=== PATIENT | female | born 1970 | race Caucasian/White ===

== ENCOUNTER → 2021-04-17 14:04 | Outpatient (CLI) | payer BC, MEDICARE, SELFPAY ==
--- NOTE | ~2021-04-17 | US_ITS ---
US soft tissue abdomen 04/17/2021 14:28 Indication: Ventral hernia Procedure: High-resolution ultrasound of the anterior abdominal wall soft tissues Comparison: No prior studies for comparison. Findings: There is normal heterogeneous echotexture without focal solid or cystic mass. No evidence f or hernia. Impression: 1: Normal ultrasound of the anterior abdominal wall soft tissues. No discrete hernia identified. Reviewed, dictated and finalized at location A. Impression: 1: Normal ultrasound of the anterior abdominal wall soft tissues. No discrete h ernia identified.
== END ==
PROVIDERS: PCP Emergency Medicine; Visit Provider Emergency Medicine
DX: K43.9 Ventral hernia without obstruction or gangrene (principal)
CPT/HCPCS: 76705

== ENCOUNTER → 2021-07-05 16:08 | Outpatient (CLI) | payer BC, SELFPAY ==
--- NOTE | ~2021-07-05 | MM_ITS ---
EXAMINATION: MM screening [facility] BI w ericka HISTORY: Screening TECHNIQUE: Craniocaudal and mediolateral oblique 3-D tomosynthesis images were obtained and synthetic 2-D images were generated. CAD analysis was submitted and interpreted. COMPARISON: No prior mammogram is available for comparison at this institution. BREAST PARENCHYMAL COMPOSITION: There are scattered areas of fibroglandular density. FINDINGS: There is a focal cluster of indeterminate calcifications in the lower outer quadrant of the left breast posteriorly. There are no suspicious masses, calcifications or architectural distortion in the right breast to suggest malignancy. IMPRESSION: 1. Clustered indeterminate left breast calcifications. 2. Magnification views are recommended. BI-RADS Category 0: Incomplete: Needs additional imaging evaluation. Reviewed, dictated and finalized at location A.
== END ==
PROVIDERS: PCP Emergency Medicine; Visit Provider Emergency Medicine
DX: Z12.31 Encounter for screening mammogram for malignant neoplasm of breast (principal); R92.8 Other abnormal and inconclusive findings on diagnostic imaging of breast
CPT/HCPCS: 77063; 77067

== ENCOUNTER → 2021-11-02 08:04 | Outpatient (CLI) | payer BC, SELFPAY ==
--- NOTE | ~2021-11-02 | MM_ITS ---
EXAMINATION: MM diagnostic priya LT w ericka HISTORY: Left breast calcifications on screening mammogram TECHNIQUE: Additional 3-D tomosynthesis images of the left breast were performed and synthetic 2-D im ages were generated. Magnification views are also obtained CAD analysis was submitted and interpreted . COMPARISON: 07/05/2021 FINDINGS: There are calcifications posterior third of the lower-outer breast at the 4:00 location 7 c m from the nipple which appear to be mildly pleomorphic in morphology. No associated mass or architec tural distortion are identified. IMPRESSION: 1. Indeterminate left breast calcifications. 2. Stereotactic biopsy is recommended. BI-RADS category 4, suspicious findings. Reviewed, dictated and finalized at location A. LCANIZER HEAD
== END ==
PROVIDERS: PCP Emergency Medicine; Visit Provider Emergency Medicine
DX: R92.2 Inconclusive mammogram (principal); R92.8 Other abnormal and inconclusive findings on diagnostic imaging of breast
CPT/HCPCS: 77061; 77065; G0279

== ENCOUNTER 2021-11-23 11:04 | Outpatient (CLI) | payer BC, SELFPAY ==
--- NOTE | ~2021-11-23 | MM_ITS ---
The patient presented for stereotactic biopsy of grouped microcalcifications in the posterior aspect of the lower outer quadrant of left breast. Attempt was made to perform a stereotactic biopsy, but the microcalcifications are too far posterior near the chest wall for stereotactic biopsy access. I explained to the patient that the stereotactic biopsy could not be performed, having indicated vanesa jones my pre-procedure discussion with the patient the possibility that these might not be accessible du e to their posterior location. I recommended that the microcalcifications be surgically excised with preoperative mammographically g uided wire localization. IMPRESSION: BIRADS CATEGORY 4: SUSPICIOUS ABNORMALITY RECOMMENDATION: Mammographically guided preoperative wire localization and surgical excision of micro calcifications Dr. Chaudhry telephoned Dr. Hall on 11/23/2021 at 1535 hours with this recommendation. Reviewed, dictated and finalized at location A. IMPRESSION: BIRADS CATEGORY 4: SUSPICIOUS ABNORMALITY RECOMMENDATION: Mammographically guided preoperative wire localization and surg ical excision of microcalcifications Dr. Chaudhry telephoned Dr. Hall on 11/23/2021 at 1535 hours with this recommendatio wesley
== END 2021-11-23 11:05 | disposition home or self-care (01) ==
LOC: ANHIMG 11:06
PROVIDERS: PCP Emergency Medicine; Visit Provider Emergency Medicine
DX: N63.20 Unspecified lump in the left breast, unspecified quadrant (principal); R92.8 Other abnormal and inconclusive findings on diagnostic imaging of breast
CPT/HCPCS: 99199

== ENCOUNTER 2021-12-11 00:06 | Day surgery (SDC) | payer BC, SELFPAY ==
[2021-12-05 08:34] VITALS: BMI 29.6
--- NOTE | 2021-12-05 08:45 | PC.NURSE ---
Report to the Outpatient Waiting Room, entrance under the green pavilion located off [facility], at time 0630 on date 12/11/21. OR Time: 0930. - You and your visitor will be asked a series of questions to screen for COVID 19 for your protection. - A mask is required within the hospital. One visitor will be allowed to accompany the patient into the hospital. Patients visitor will be instructed to remain with patient at all times or leave the building. We will allow the visitor to come back to the postoperative area when patient is ready. Preoperative COVID Testing Requirements: TO BRING COPY OF CARD No COVID Test needed if: (proof is required; if not received patient will have Rapid Test prior to entry) - Patient has received COVID Vaccine at least 14 days prior to procedure date or - Patient has positive COVID test result within last 90 days of surgery date. COVID Test needed if above criteria is not met Patients may have clear liquids (water, carbonated beverages, clear teas, apple juice) until 3 hours prior to surgery with a maximum of 20 ounces. - No food from midnight until time of surgery Take the following medications with a SIP of water the morning of surgery: NONE Medications to discontinue per physician: IBUPROFEN Date to take last dose: PER DR. LEDESMA Please no make-up, nail yi, hairspray, perfume, deodorant, or body powder the day of surgery. No jewelry (including any body piercings) or valuables the day of surgery, leave them at home. Please take a shower or bath the night before, or the morning of, surgery with an antibacterial soap. Wear comfortable, loose fitting clothing. - Jewelry must be removed prior to entering the operating room. Rings and piercings that are not removed may be cut off. - The hospital will not accept responsibility for valuables. - Please leave all valuables, including medications, at home the day of surgery. If you are going home after surgery, a licensed transit driver must drive you home. - NO public transportation without another adult. - We recommend that an adult stay with you for 24 hours following discharge. - We also recommend that you do not drive, make important decision, drink alcoholic beverages, or take any drugs that were not prescribed by your health care provider for at least 24 hours after your discharge time. Follow any additional instructions given to you from your surgeon. Telephone instructions given to MOISES PRESTON and asked if any additional questions and then verbalized understanding. Patient advised to call surgeon office or pre surgery nurse liaison [phone] if any additional questions.
--- NOTE | ~2021-12-11 | MM_ITS ---
MM surgical specimen LT DATE: 12/11/2021 10:20 INDICATION: Surgical excision of grouped microcalcifications, very posterior lower outer left breast TECHNIQUE: Single noncompression mammographic exposure of surgical soft tissue specimen COMPARISON: left needle localization mammographic views FINDINGS: The distal guidewire and the grouped microcalcifications of interest are present in the gladis gical soft tissue specimen. IMPRESSION: Successful surgical excision of preoperatively mammographically guided percutaneously loc alized grouped microcalcifications from very posterior lower outer quadrant Reviewed, dictated and finalized at Location A. Reviewed, dictated and finalized at location A. IMPRESSION: Successful surgical excision of preoperatively mammographically lupis ded percutaneously localized grouped microcalcifications from very posterior lo wer outer quadrant
--- NOTE | ~2021-12-11 | MM_ITS ---
MM needle loc DATE: 12/11/2021 08:57 INDICATION: Grouped microcalcifications in deep posterior lower outer left breast TECHNIQUE: The purpose of the procedure, technique and potential competitions were discussed with the patient. The patient indicated understanding and gave consent. Timeout procedure confirmed proper patient and procedure and sidedness. The left breast was placed in compression with biopsy grid apparatus over the lateral aspect of the l eft breast. Using alpha and numeric coordinates on the grid, the microcalcifications were localized. The skin over the lower outer left breast was prepared with sterile Betadine. 1% lidocaine local anes thetic was administered to the skin subcutaneous tissues. A 7.5 cm [place] [facility] needle was introduc ed from a lateral approach. Lateral medial mammographic exposures were utilized to direct the needle in appropriate direction. Exaggerated lateral craniocaudal exposures were utilized to suggest the nee dle to the appropriate depth. The needle was then withdrawn with the localization wire remaining at t he area of microcalcifications. Final rotated lateral craniocaudal and mediolateral exposures reveal the wire in intimate association with the grouped microcalcifications of interest. The patient was very cooperative and tolerated procedure very well, without complaint. IMPRESSION: Successful preoperative mammographically guided percutaneous wire localization of grouped microcalcifications in the very posterior aspect of the lower outer left breast Reviewed, dictated and finalized at Location A. Reviewed, dictated and finalized at location A. IMPRESSION: Successful preoperative mammographically guided percutaneous wire l ocalization of grouped microcalcifications in the very posterior aspect of the lower outer left breast
[2021-12-11] MEDS: LACTATED RINGERS 1,000 ML 30 ML IV CONT (06:32)
[2021-12-11 06:45] VITALS: BP 148/95; PULSE 84; RESP 18; TEMP 32.4; O2SAT 100
[2021-12-11] MEDS: ACETAMINOPHEN 500 MG TABLET 1000 MG PO (06:58)
[2021-12-11] MEDS: KETOROLAC 15 MG/ML VIAL (*BKC) IV PUSH (07:04)
--- NOTE | 2021-12-11 08:54 | P.PNAN_ITS ---
Anes - Initial Pre Proc Eval Procedure: Operation Date: 12/11/21 09:30 Proposed Procedures p Left Breast Excisional Biopsy with Ultrasound and/or Mammogram Guided Needle Localization - Lei Hooks DO Date/Time: 12/11/21 08:54 Surgeon: Lei Hooks DO Pre Op Diagnosis: abnmormal mammogram left breast Patient Data Age: 51 Gender: F Height: 1.73 m Weight: 90.4 kg Last Vital Signs Temp 32.4 C L 12/11/21 06:45 Pulse 84 12/11/21 06:45 Resp 18 12/11/21 06:45 BP 148/95 H 12/11/21 06:45 Pulse Ox 100 12/11/21 06:45 Allergies Allergy/AdvReac Type Severity Reaction Status Date / Time gabapentin Allergy Mild Shortness Verified 12/11/21 07:57 of breath, rash Penicillins Allergy Unknown Thrush, Verified 12/11/21 07:57 rash Home Medications Medication Instructions Recorded Confirmed Type ibuprofen 200 mg tablet 200 mg PO Q6H PRN 04/20/21 12/05/21 History irbesartan 150 mg tablet 150 mg PO DAILY 04/20/21 12/05/21 History Patient hx anesthesia problems: none Family hx anesthesia problems: none Results Review: All pre-operative results and documents have been reviewed as part of the pre-operative evaluation. FOR[facility]LY [facility] Past Medical History Medical History Heart disease History of pyloric stenosis as a child Hypertension Hyperthyroidism Thyroid disease Surgical History Surgical History H/O cardiac radiofrequency ablation x8 History of back surgery L5 bilateral History of partial thyroidectomy 2005 Family History Family History Father Diabetes mellitus Sibling Emphysema lung Mother Heart disease Other Breast cancer Grandparent Cerebrovascular accident Social History Social History Smoking packs per day: 1 Smoking cigarettes per day: 20.0 Years smoked: 35 Smoking pack-years: 35.00 Smoking status: Current every day smoker Tobacco type: cigarettes Alcohol intake: never Substance use: never Substance use type: does not use Living arrangements: with family 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 Informed Consent: The patient's anesthetic plan and its attendant risks and benefits were discussed with the patient/family/POA. Questions were solicited and answers provided to the satisfaction of the patient/family/POA.
--- NOTE | 2021-12-11 09:12 | WPDHPUPDATE1 ---
History and Physical Update Update Date/Time: 12/11/21 09:12 History and Physical has been reviewed, including an updated exam of the patient. There are NO changes in the patient's condition. Risks, benefits, and alternatives have been discussed and questions answered. Patient agrees to proceed with procedure.
[2021-12-11] MEDS: ceFAZolin 2 GM/D5W 50 ML 2 GM/50 ML BAG IVPB (09:41)
[2021-12-11] MEDS: BUPIVACAINE/EPINEPHRINE 0.25% 50 ML VIAL 30 ML INFILTRATE (10:04)
[2021-12-11 10:30] VITALS: BP 111/61; PULSE 71; RESP 16; O2SAT 95
--- NOTE | 2021-12-11 10:32 | W.PM.PROC2 ---
Procedure Note - Detailed Date of Procedure 12/11/21 Pre-op Diagnosis abnmormal mammogram left breast Post-op Diagnosis Same Procedure Performed Left breast needle/wire localized excisional biopsy Surgeon Lei Hooks, DO Anesthesia MAC and Local (1% lidocaine with epinephrine) Indications This is a 51-year-old woman who presented with an abnormal mammogram. This was initially done as a screening mammogram and she had some microcalcifications identified on the left breast. She was scheduled for a core needle biopsy, but radiology felt that this was too close to her chest wall to perform a needle biopsy. Recommendation was to proceed with wire localized excisional biopsy. Findings Wire localized left breast excisional biopsy was performed. The wire was placed by Radiology preoperatively and the images were reviewed prior to the patient going back for procedure. An inferior periareolar incision was made and this was dissected down to the intramammary wire. The lumpectomy was performed around the wire and the specimen was sent to Radiology for radiographic inspection. The specimen appeared to contain all of the microcalcifications. The specimen was oriented with a short suture superior and long suture lateral. Description of Procedure Procedure as well as risks, benefits, and alternatives were discussed with the patient. Written consent was obtained and placed in chart prior to procedure. Patient was brought back to surgical suite. She was placed supine on operating table. Time-out was done to confirm patient and procedure. IV sedation was then administered by the anesthesia department. Her left breast area was prepped and draped in sterile fashion using chlorhexidine prep. 1% lidocaine with epinephrine was infiltrated locally around the inferior periareolar region. A 4 cm curvilinear incision was made using a 15 blade scalpel at the inferior edge of the areola. Electrocautery was used for hemostasis and for dissection down to the breast tissue. I carefully dissected along the lateral breast tissue until the wire was encountered. The wire was then cut using a wire photo operator. I then carefully dissected around the wire that was within the breast tissue and excised approximately a 2 cm x 2 cm area of breast tissue. The wire was left in place the entire time and no other portions of the distal wire exposed while doing the lumpectomy. The specimen was completely excised and then oriented with a short suture superior and long suture lateral. It was then sent for x-ray confirmation of the specimen. A hemoclip pediatrician active practice was used to place 3 clips along the area where the lumpectomy was performed. The wound bed was then inspected for hemostasis. Hemostasis was achieved with electrocautery. The area was irrigated with sterile saline. No other abnormalities were noted. The deep dermis was then reapproximated using 3-0 Vicryl simple interrupted sutures. The skin was then approximated using 4 Monocryl running subcuticular suture. Exofin glue was then applied on top. Estimated Blood Loss 5 Pathology Yes (Left breast excisional biopsy--short suture superior, long suture lateral) Complications No immediate complications Condition Stable Disposition Same day
[2021-12-11 11:00] VITALS: BP 127/80; PULSE 75; RESP 16
[2021-12-11 11:10] VITALS: BP 118/83; PULSE 71; RESP 16
[2021-12-11] MEDS: oxyCODONE HCL (*CRX) 5 MG TAB IR PO (11:14)
== END 2021-12-11 11:20 | disposition home or self-care (01) ==
PROVIDERS: PCP Emergency Medicine; Visit Provider Surgery
PROC: (CPT 19125; principal; 2021-12-11 09:30)
DX: N60.32 Fibrosclerosis of left breast (principal); N60.42 Mammary duct ectasia of left breast; N60.82 Other benign mammary dysplasias of left breast; R92.0 Mammographic microcalcification found on diagnostic imaging of breast; I10 Essential (primary) hypertension; E03.9 Hypothyroidism, unspecified; F17.210 Nicotine dependence, cigarettes, uncomplicated; Z90.89 Acquired absence of other organs; E66.9 Obesity, unspecified; Z68.30 Body mass index [BMI] 30.0-30.9, adult
CPT/HCPCS: 19125; 19281; 76098; 88307; A9270; C1769; J0690; J1100; J1885; J2250; J2405; J2704; J3010; J7120

== ENCOUNTER 2024-03-24 13:36 | Outpatient (CLI) | payer BC, SELFPAY ==
--- NOTE | ~2024-03-24 | MM_ITS ---
EXAMINATION: MM screening [facility] BI w ericka HISTORY: Screening TECHNIQUE: Craniocaudal and mediolateral oblique 3-D tomosynthesis images were obtained and synthetic 2-D images were generated. CAD analysis was submitted and interpreted. COMPARISON: Comparison to multiple prior studies sequentially, with oldest reviewed study dated 10/2020. BREAST PARENCHYMAL COMPOSITION: There are scattered areas of fibroglandular density. FINDINGS: There is no evidence of suspicious mass, calcification, or architectural distortion to sugg est malignancy in either breast. There has been no suspicious interval change. IMPRESSION: 1. No mammographic evidence of malignancy. 2. Recommend routine screening mammography in one year. BI-RADS Category 1: Negative Reviewed, dictated and finalized at location B.
== END 2024-03-24 13:37 ==
LOC: MICIMG 13:36
PROVIDERS: PCP Emergency Medicine; Visit Provider Emergency Medicine
DX: Z12.31 Encounter for screening mammogram for malignant neoplasm of breast (principal)
CPT/HCPCS: 77063; 77067

== ENCOUNTER 2025-03-11 16:22 | Outpatient (CLI) | payer BC, SELFPAY ==
--- NOTE | ~2025-03-11 | CT_ITS ---
CT Scan of the Chest without Contrast: Clinical Indication: Lung cancer screening, nicotine dependence Technique: Contiguous sections were acquired throughout the chest without intravenous contrast. Dose reduction technique was used on this scan by utilizing automated exposure control and iterative recon struction technique. The dose-length product (DLP) was 155.10 mGy-cm. Findings: There is no evidence of any significant mediastinal, hilar or axillary lymphadenopathy. The mediastin al soft tissues appear normal. There is no evidence of pleural or pericardial effusion. The lungs are clear. No pulmonary nodules or infiltrates are noted. There is mild biapical emphysema. Images through the upper abdomen reveal no abnormalities. Impression: Lung RADS 1: Negative. 12 month follow-up screening CT advised. Reviewed, dictated and finalized at location . Impression: Lung RADS 1: Negative. 12 month follow-up screening CT advised.
--- OUTSIDE RECORDS SUMMARY | 2025-03-11 16:26 | XMS_ITS | Clinical Summary ---
Author Organization [facility] Address [address] [place] [address] Care Team Providers Care Electronic Console Display Operator Name Role Phone Chris Edgar MD Unavailable [phone] Twan Hall MD Primary Care Provider [phone] Source Comments [facility],non-owned Affiliates and Associated Physician Practices is amultiple site organization consisting of ambulatory clinics and hospital sitesin [place], [place], [place] and [place]. This disclosure is being madepursuant to the Care Everywhere program and may not contain all information available regarding this patient. Last updated 18.[facility] Allergies Active Allergy Reactions Criticality Noted Date Comments Gabapentin Unknown 09/16/2012 Levofloxacin Unknown 06/24/2013 Penicillins Unknown 09/16/2012 Medications * Be aware that medications may not be up to date on this document. Alwaysverify current medications with the patient. albuterol HFA (PROVENTIL;VENT MALIK;PROAIR) 108 (90 Base) MCG/ACT inhaler Inhale 1-2 puffs by mouth every 24 hours as needed 10/16/2013 Active aspirin (ASPIRIN) 325 MG tablet Take 325 mg by mouth once daily Active albuterol-iprat ropium (DUO-NEB) 0.5-2.5 (3) MG/3ML nebulizer solution Inhale 1 Units by mouth 3 times daily 06/25/2013 Active nitroGLYCERIN (NITROSTAT) 0.4 MG tablet Dissolve 1 tablet under the tongue every 24 hours as needed Active nabumetone (RELAFEN) 750 MG tablet Take 1 tablet by mouth 2 times daily 60 tablet 5 03/29/2020 Active Active Problems Problem Noted Date Diagnosed Date Primary osteoarthritis of both knees 03/29/2020 Social History Tobacco Use Types Packs/Day Years Used Date Smoking Tobacco: Never Assessed Comments Unknown Sex and Gender Information Value Date Recorded Sex Assigned at Not on file 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 Gender Identity Not on file Sexual Orientation Not on file Last Filed Vital Signs Vital Sign Reading Time Taken Comments Blood Pressure - - Pulse - - Temperature - - Respiratory Rate - - Oxygen Saturation - - Inhaled Oxygen Concentration - - Weight 74.8 kg (165 lb) 03/29/2020 1:57 PM CDT Height 172.7 cm (5' 8) 03/29/2020 1:57 PM CDT Body Mass Index 25.09 03/29/2020 1:57 PM CDT Plan of Treatment Health Maintenance Due Date Last Done Comments COLOGUARD (AGES 45-75) - COL ON CA SCREENING 1969 COLON MONITORING 1969 COLONOSCOPY - COLON CA SCREENING 1969 CT COLONOGRAPHY - COLON CA SCREENING 1969 Colorectal Cancer Screening 1969 FIT - COLON CA SCREENING 1969 FLEX SIG - COLON CA SCREENING 1969 LIPID TESTING 1969 MAMMOGRAM 1969 HIV SCREENING 1984 HEPATITIS C SCREENING 10/27/1987 DTAP/TDAP/TD VACCINES (1 - Tdap) 1988 HEPATITIS B VACCINE (1 of 3 - 19+ 3-dose series) 1988 PNEUMOCOCCAL VACCINE 50+ (1 of 1 - PCV) 11/01/2019 ZOSTER VACCINE (1 of 2) 11/01/2019 SCREENING FOR DIABETES 03/29/2020 COVID-19 VACCINE ( - 2023-2 5 season) 2024 DEPRESSION SCREENING 09/02/2024 INFLUENZA VACCINE (Season Ended) 2025 09/17/19 14 HIB VACCINE Aged Out No longer eligi ble based on patient's age to complete this topic HPV VACCINE Aged Out No longer eligi ble based on patient's age to complete this topic MENINGOCOCCAL (Group B) VACC INE SHARED DECISION-MAKING Aged Out No longer eligibl e based on patient's age to complete this topic MENINGOCOCCAL GROUPS A/C/Y/W VACCINE Aged Out No longer eligible b ased on patient's age to complete this topic Insurance ANTHEM ANTHEM Care Teams Electronic Console Display Operator Relationship Specialty [place] [id number] [place] [address] PCP - General 12/13/21 [place] [id number] [address] [facility] [place] [address] Orthopedic Surgery 03/29/20
--- OUTSIDE RECORDS SUMMARY | 2025-03-11 16:26 | XMS_ITS | Continuity of Care Document ---
Author Organization [facility] Address [address] [place] [address] Phone Care Team Providers Care Cashier Assistant Name Role Phone Twan Hall MD Unavailable Unavailable Allergies, Adverse Reactions, Alerts Substance Reaction Status Criticality Penicillins Active No Information Medications Medication Instructions Dosage Effective Dates (start - stop) Status Comments irbesartan 300 mg-hydrochlorothiaz suresh 12.5 mg tablet take 1 tablet by oral route every day 1.00 tablet - Active Procedures Procedure Date OFFICE/OUTPATIENT VISIT, EST OFFICE/OUTPATIENT VISIT, EST OFFICE/OUTPATIENT VISIT, EST PREV VISIT, EST, AGE 40-64 OFFICE/OUTPATIENT VISIT, EST PREV VISIT, EST, AGE 40-64 OFFICE/OUTPATIENT VISIT, EST OFFICE/OUTPATIENT VISIT, EST OFFICE/OUTPATIENT VISIT, EST OFFICE/OUTPATIENT VISIT, EST OFFICE/OUTPATIENT VISIT, EST PREV VISIT, NEW, AGE 40-64 OFFICE/OUTPATIENT VISIT, NEW Advance Directives Directive Yes / No Effective Date File Name No Information Encounters Encounter Description Practice Location Reason(s) For Visit Diagnoses Date Provider Providers Copied on Encounter OFFICE/OUTPA TIENT VISIT, EST [facility], [address] [place] [address], [id number], [place] tel:[phone] [facility] HTN (chief complaint) anxiety1 (chief complaint) weight gain1 (chief complaint) Other specified disorder of bone densityGeneralized Anxiety DisorderEssential (primary) hypertensionAbnorma l weight gainTobacco use 4 Rafael Cueto [address], [address], [place], [place], [id number] , [place]. tel: [phone] OFFICE/OUTPA TIENT VISIT, EST [facility], [address] [place] [place], [id number], [place] tel:[phone] [facility] HTN (chief complaint) anxiety1 (chief complaint) HLP (chief complaint) low d (chief complaint) Mixed hyperlipidemiaEssen tial (primary) hypertensionGeneral ized Anxiety DisorderOther specified disorder of bone densityEncounter for screening for malignant neoplasm of colon 4 Rafael Cueto [address], [place], [place], [id number] , [place]. tel: [phone] OFFICE/OUTPA TIENT VISIT, EST [facility], [address], [id number], [place] tel:[phone] [facility] HTN (chief complaint) Essential (primary) hypertensionGeneral ized Anxiety Disorder 4 Rafael Cueto [address], [place], [place], [id number] , [place]. tel: [phone] PREV VISIT, EST, AGE 40-64 [facility], [address], [id number], [place] tel:[phone] [facility] physical (chief complaint) Mixed hyperlipidemiaEssen tial (primary) hypertensionEncount er for general adult medical exam w abnormal findingsMass in the lt breast 4 Rafael Cueto [address], [address], [place], [place], [id number] , [place]. tel:[phone] PREV VISIT, EST, AGE 40-64 [facility], [address], [place], [place], [id number], [place] [phone] [facility] physical (chief complaint) Encounter for general adult medical exam w abnormal findingsEssential (primary) hypertensionMass in the lt breastMixed hyperlipidemia 2 Hall Twan. [address], [address], [place], [place], [id number] , [place]. tel:[phone] OFFICE/OUTPA TIENT VISIT, [facility], [address], [place], [place], [id number], [place] tel:[phone] [facility] breast mass1 (chief complaint) Mass in the lt breast 2 Hall Twan. [address], [place], [place], [id number] , [place]. tel:[phone] OFFICE/OUTPA TIENT VISIT, [facility], [address], [place], [place], [id number], [place] tel:[phone] [facility] breat mass1 (chief complaint) HTn (chief complaint) Mass in the lt breastEssential (primary) hypertension 2 Hall Twan. [address], [place], [place], [id number] , [place]. tel:[phone] [facility], [address], [place], [place], [id number], [place] tel:[phone] [facility] Inconclusive mammogram 1 Hall Twan. [address], [place], [place], [id number] , [place]. tel:[phone] OFFICE/OUTPA TIENT VISIT, [facility], [address], [place], [place], [id number], [place] tel:[phone] [facility] HLP (chief complaint) low d (chief complaint) HTN (chief complaint) tobacco1 (chief complaint) HyperlipidemiaEssen tial (primary) hypertensionVitamin D deficiency, unspecifiedTobacco useDisorder of thyroid, unspecified 1 Hall Twan. [address], [place], [place], [id number] , [place]. tel:[phone] OFFICE/OUTPA TIENT VISIT, [facility], [address], [place], [place], [id number], [place] tel:[phone] [facility] abd pain (chief complaint) HTN (chief complaint) Essential (primary) hypertensionSeparat ion of muscle (nontraumatic), other site May- 1 Rafael Trent. [address], [place], [place], [id number] , [place]. tel:[phone] PREV VISIT, NEW, AGE 40-64 [facility], [address], [place], [place], [id number], [place] tel:[phone] [facility] physical (chief complaint) Encounter for general adult medical exam w abnormal findingsVentral herniaEssential (primary) hypertensionAbnorma l weight gainDisorder of thyroid, unspecifiedCardiac arrhythmia 1 Rafael Trent. [address], [place], [place], [id number] , [place]. tel:[phone] Family History Family Member Type Diagnosis Age At Onset Mother Problem Alive and well Sister Problem charcott Sister Problem Alive and well Father Problem prostate [place] Payers Payer name Insurance type Covered green party ID Authoriza tion(s) No Information Social History Type Description Quantity Date Captured Comments Alcohol Use Details No Caffeine Use Details Unknown Tobacco Use Status Heavy cigarette smok er (20-39 cigs/day) Smoking Status Heavy tobacco smoker Sex Female Vital Signs Date / Time: Height Weight BMI Pulse Rate Blood Pressure Temperature Respiratory Rate Body Surface Area Head Circumference BMI percentile Pulse Ox Inhaled Ox 5:48 PM 68.00 in 193.80 lbs 29.4 7 kg/m eter (2) 70 /min 110/70 mm[Hg] 98.0 F 16 /min Chief Complaint And Reason For Visit From encounter dated '05/20/2024 17:46'. HTN (chief complaint). Description: Pt has HTN Pt takes irbesartan/hctz and his bp is stable. anxiety1 (chief complaint). Description: Pt has been having a lot of stress at work but she is handling stress ok Pt no longer needs to take xanax weight gain1 (chief complaint). Description: Pt has been gaining weight .Pt failed diet and exercise and weight loss Plan Of Treatment Date Type Action Status Referral Ordered: DXA BONE DENSITY, AXIAL ordered Referral Ordered: COLONOSCOPY AND BIOPSY ordered Referral Ordered: US GUIDANCE ordered Referral Ordered: MAMMOGRAM, ONE BREAST ordered Referral Ordered: CT THORAX W/O DYE ordered Referral Ordered: US SOFT TISSUE CHEST ordered Referral Ordered: MAMMOGRAM, SCREENING ordered Referral Referred To: Ronn Howard [address] [place] [address], [phone] Ordered: Referrals: Ronn Howard. Evaluate and treat ordered Appointment Sue Gutierrez BOOKED History Of Present Illness Encounter Date Complaint History Of Prese nt Illness HTN Pt has HTN Pt ta kes irbesartan/hctz and his bp is stable. anxiety1 Pt has been havi ng a lot of stress at work but she is handling stress ok Pt no longer needs to take xanax weight gain1 Pt has been gain ing weight .Pt failed diet and exercise and weight loss HTN Pt has HTn, Pt t akes irbesartan/hctz and her bp is ok. Pt denies any chest pain or headache. anxiety1 Pt has mild anxi ety Pt denies any depression or any suicidal or homicidal thought pt denies any crying spells Pt takes xanax PRn which does calm her down and relieve her anxiety HLP Pt has mild HLP Pt is not on any diet low d Pt has low D. HTN Pt has HTN pt ta kes irbesartan 150 mg daily and her bp is very high, Pt states that she has been having a lot of stress at work Pt feels that her face turns warm when her bp is high Pt denies any chest pain or headache or sob. Pt is very anxious Pt denies any depression or any suicidal or homicidal thought Pt denies any crying spells Fe-22-2024 physical Pt needs annual physical pt has history of left breast benign cyst s/p benign biopsy. Pt denies any breast pain or nodule. Pt never did screening mammo two years ago. Pt has HTN Pt has been out of irbesartan for long time .her bp is borderline today. Pt denies any chest pain or headache. Pt has low D Pt has been taking calcium and D and trying weight bearing exercise. Pt overall feels well, Pt denies any new complaints Pt has not seen me for two years. Pt never did colonoscopy. chest Ct or mammo physical Pt needs annual physical pt has history of left breast benign cyst s/p benign biopsy. Pt denies any breast pain or nodule. Pt has HTN Pt takes irbesartan and her bp is stable. Pt has low D Pt has been taking calcium and D and trying weight bearing exercise. Pt overall feels well, Pt denies any new complaints breast mass Pt had screening mammogram done which showed left breast calcifications Pt denies any palpable breast mass or lesion. Pt denies any breast pain, retraction, discoloration, redness or warmth, nipple discharge, etc. We attempted for a stereotactic biopsy by radiology unsuccessfully. Radiology recommend a surgical biopsy and removal by surgeon. breat mass1 Pt has abnormal mammogram which showed suspicious left breast calcification. Pt denies any breast pain, nodule, retraction, etc .Pt denies any axillary nodule or pain or breast discoloration HTn Pt has HTN Pt ta kes irbesartan 300 mg daily Pt denies any chest pain or headache. her bp is borderline high today low d Pt has low D. Pt is postmeno HTN Pt has HTN P loy es irbesartan 300 mg daily and her bp is stable Pt has normal OU. Pt denies any side effects from irbesartan .Pt denies any sob, chest pain or headache or dizziness tobacco1 insurance and aging center does not approve for LDCT due to her age. Pt denies any hemoptysis, sob or cough HLP Pt has mild HLP. Pt is not on any diet abd pain Pt noticed a ten raghav lump around mid abdominal area just above umbilicus for more than 6 months. Pt does a lot of lifting at work. Pt denies any nausea, vomiting or diarrhea. Pt had negative soft tissue ultrasound. Pt was evaluated by surgeon and was told that she has diastasis recti HTN Pt has HTN Pt ta kes irbesartan 150 mg but her bp still seems mildly high, especially towards 24 hours from her dose .Pt states that her bp is around 150/100 Pt denies any chest pain or headache physical PT needs annual physical. Pt has HTN. Pt used to take metoprolol from cardiology but she has not been on it for one year since she has not seen creeler for more than one year .Pt has history of SVT with sinus node arrhythmia s/p failed ablation with open heart maze procedure. Pt denies any chest pain or palpitation Pt denies any sob Pt noticed a tender and lump around mid abdominal area just above umbilicus for more than 6 months, worse during last two weeks. Pt does a lot of lifting at work. Pt denies any vomiting, diarrhea, blood in stool. Pt does feel mild nausea after food. Pt states that she feels pain around lumpy area after food causing her to nauseated. Pt also gained a lot of weight since becoming menopausal since last year. Pt also had right partial thyroidectomy due to noncancerous cyst in the past. Pt denies any other complaints Instructions Date Instruction Additional Infor mation No Information Assessments Type Assessment Date assessment Other specified disorder of bone density assessment Generalized Anxiety Disorder May assessment Essential (primary) hypertension assessment Abnormal weight gain assessment Tobacco use Mental Status Date Cognitive Assessment Orientation - [place] ed to time, place, person, situation.
== END 2025-03-11 16:23 | disposition home or self-care (01) ==
PROVIDERS: PCP Emergency Medicine; Visit Provider Emergency Medicine
DX: Z12.2 Encounter for screening for malignant neoplasm of respiratory organs (principal); Z87.891 Personal history of nicotine dependence
CPT/HCPCS: 71271